=== PATIENT | male | born 1940 | race Caucasian/White ===

== ENCOUNTER 2019-12-16 06:40 | Outpatient (CLI) | payer MEDICARE, SELFPAY ==
[2019-12-16 07:30] LABS: Anion Gap 4 mmol/L (8-16); Blood Urea Nitrogen 16 mg/dL (9-20); Calcium 8.4 mg/dL (8.4-10.2); Carbon Dioxide 31 mmol/L (22-30); Chloride 104 mmol/L (98-107); Estimated Glomerular Filt Rate > 60; Glucose 88 mg/dL (75-110); Potassium 4.3 mmol/L (3.4-5.0); Sodium 139 mmol/L (137-145)
== END 2019-12-16 06:41 | disposition home or self-care (01) ==
DX: I25.5 Ischemic cardiomyopathy (principal)
CPT/HCPCS: 36415; 80048

== ENCOUNTER 2019-12-24 09:38 | Emergency (ER) | payer MEDICARE, SELFPAY ==
--- NOTE | ~2019-12-24 | CT_ITS ---
EXAMINATION: CT brain wo con INDICATION: Lower limb weakness COMPARISON: None TECHNIQUE: Standard unenhanced head CT. The dose-length product (DLP) was 605.33 mGy-cm. The mA was a djusted according to patient size. Iterative reconstruction technique was employed. FINDINGS: There is no acute intraparenchymal hemorrhage. No evidence of mass lesion. No evidence of a cute infarction. There is mild periventricular and subcortical hypodensity probably related to small vessel ischemic disease. There is mild prominence of the sulci and ventricles related to cerebral atr ophy. Intracranial calcified cerebral atherosclerosis is noted. There are no extra-axial collections. There is no mass effect or midline shift. There appear to be changes of ocular lens surgery in the l eft lobe. There also appear to be chronic changes of sinusitis and surgery in the left maxillary sin us. IMPRESSION: 1. No acute intracranial abnormality. 2. Age related findings. Reviewed, dictated and finalized at location A.
--- NOTE | ~2019-12-24 | XR_ITS ---
EXAMINATION: XR chest 1V portable INDICATION: Weakness TECHNIQUE: Portable AP chest at 1018 hours COMPARISON: CT, 11/30/2018 FINDINGS: The lung volumes are low. Cardiomegaly is noted. Chronic airspace opacities are present wit h a mid and lower lung zone predominance. No definite superimposed airspace opacity is seen. No pleur al effusion or pneumothorax is identified. Median sternotomy wires are consistent with prior cardiac surgery. A pacemaker of the left chest wall is noted. IMPRESSION: 1. Chronic airspace opacities, consistent with chronic interstitial lung disease, without definite flores perimposed airspace opacity identified. 2. Cardiomegaly. Reviewed, dictated and finalized at location A. IMPRESSION: 1. Chronic airspace opacities, consistent with chronic interstitial lung diseas e, without definite superimposed airspace opacity identified. 2. Cardiomegaly.
[2019-12-24 09:54] VITALS: BP 128/92; PULSE 88; RESP 18; TEMP 36.6; O2SAT 100
--- NOTE | 2019-12-24 10:00 | PC.NURSE ---
Pt attempting to provide urine sample at this time.
--- NOTE | 2019-12-24 10:02 | ECG_ITS ---
Measurements Intervals [place] Rate: 87 P: MA: 0 QRS: -84 QRSD: 213 T: 90 QT: 474 QTc: 572 Interpretive Statements SINUS OR ECTOPIC ATRIAL RHYTHM RIGHT BUNDLE BRANCH BLOCK LEFT ANTERIOR FASCICULAR BLOCK BASELINE ARTIFACT- I, III, AVR, AVL, AVF, V1 ABNORMAL ECG Electronically Signed On 12-24-2019 13:48:39 CDT by Albert Harvey D.O.
--- NOTE | 2019-12-24 10:10 | PC.NURSE ---
Pt unable to provide urine sample at this time
[2019-12-24 10:18] LABS: Basophils Percent Auto 0.3 % (0.2-1.2); Eosinophils Absolute Auto 0.1 K/mm3 (0-0.3); Hematocrit 26.6 % (42.0-52.0); Hemoglobin 8.1 g/dL (14.0-18.0); Immature Granulocyte Absolute 0.03 K/mm3 (0.00-0.031); Immature Granulocyte Percent A 0.5 % (0-0.5); Lymphocytes Absolute Auto 0.65 K/mm3 (0.9-3.2); Lymphocytes Percent Auto 10.5 % (18.3-44.2); Mean Corpuscular HGB Conc 30.5 g/dl (32-36); Mean Corpuscular Hemoglobin 26.6 pg (26-34); Mean Corpuscular Volume 87.2 fl (80-100); Mean Platelet Volume 10.2 fl (7.4-10.4); Monocytes Absolute Auto 0.7 K/mm3 (0.1-0.6); Monocytes Percent Auto 11.6 % (2.6-8.5); Neutrophils Absolute Auto 4.7 K/mm3 (1.3-6.7); Neutrophils Percent Auto 76.1 % (45.5-73.1); Platelet Count Result 108 k/mm3 (150-375); Red Blood Count 3.05 M/mm3 (4.6-6.20); Red Cell Distribution Width 20.9 % (11.5-14.5); White Blood Count 6.2 K/mm3 (4.5-10.0)
--- NOTE | 2019-12-24 10:28 | ED.GENADULT ---
HPI - General Adult General Chief complaint: Weakness Stated complaint: weakness in lower legs Time Seen by Provider: 12/24/19 09:48 Source: patient History of Present Illness HPI narrative: Patient is a 79 y/o male complaining of bilateral leg weakness starting today. He states that he was staying at a friend's place last night. Around 7:30 AM, after he got up, he notice slight bilateral weakness. Later, another friend went to [employer] to go to breakfast. He still had leg weakness, but was able to walk and get himself into the car. However, after they arrived at the place for breakfast, he could not walk. He was brought in by his son's girlfriend. He also has some sensation of light-headedness. He denies any chest pain, SOB or passing out. He is able to move both arms without difficulty. He was Amiodarone for VT and it was recently changed to Mexiletine. He is also on Eliquis for A fib. Related Data Allergies Allergy/AdvReac Type Severity Reaction Status Date / Time lisinopril AdvReac Unknown Cough Verified 11/26/18 11:17 losartan AdvReac Unknown Cough Verified 11/26/18 11:17 Dvcettf-Wsr-Rag Reductase AdvReac Unknown Other Verified 11/26/18 08:45 Inhibitor Review of Systems Constitutional: Constitutional: Denies chills, Denies fever(s), Denies headache(s) and Reports weakness Eyes: Eyes: Denies blurry vision ENT: Denies headache(s) and Denies neck pain Cardiovascular: Cardiovascular: Denies chest pain and Denies dyspnea Respiratory: Respiratory: Denies cough and Denies dyspnea Gastrointestinal: Gastrointestinal: Denies abdominal pain, Denies diarrhea, Denies nausea and Denies vomiting Genitourinary: Genitourinary: Denies hematuria and Denies dysuria Musculoskeletal: Musculoskeletal: Denies back pain and Denies neck pain Neurologic: Reports dizziness, Denies headache(s) and Reports weakness PMFSH Social History Social History Gender identity (if verbalized by the patient): Male Exam Const: General: no acute distress and well developed Orientation/consciousness: oriented to person, oriented to place, oriented to time and patient oriented x3 HENMT: Head: normocephalic Ears: external ears normal General nose exam: Normal external nose present Eyes: General: appearance normal, both eyes and all related structures Conjunctivae: conjunctivae normal Neck: Neck: normal visual inspection and full ROM Chest: Chest palpation & inspection: normal inspection of the chest and no tenderness Resp: Effort & Inspection: normal respiratory effort Auscultation: clear to auscultation bilaterally Cardio: Rate: regular rate Rhythm: regular rhythm GI: GI Palp: No abdominal tenderness and Yes Soft to palpation Skin: General skin exam: normal color and turgor normal Neuro: General: oriented to person, oriented to place, oriented to time and patient oriented x3 Cognition (Neuro): normal cognition Extrem: General: normal to inspection, full ROM and no pedal edema Psych: Appearance: grossly normal Mental Status: mental status grossly normal Affect: normal affect Course Reevaluation(s) Reevaluation #1: Advised patient to be admitted for observation. Informed patient that his symptoms may be due TIA or other potentially serious causes. Patient insists that he does not want to be admitted. He will leave A. He is awake, alert and competent to make medical decision for himself. Date: 12/24/19 Time: 13:25 Vital Signs Vital signs: Vital Signs Temperature 36.6 C 12/24/19 09:54 Pulse Rate 88 12/24/19 09:54 Respiratory Rate 18 12/24/19 09:54 Blood Pressure 128/92 H 12/24/19 09:54 Pulse Oximetry 100 12/24/19 09:54 Temperature 36.6 C 12/24/19 09:54 Pulse Rate 90 12/24/19 13:43 Respiratory Rate 18 12/24/19 13:43 Blood Pressure 118/83 12/24/19 13:43 Pulse Oximetry 100 12/24/19 13:43 Medical Decision Making [facility] Narrative Medical decisio
[2019-12-24 10:30] LABS: Alanine Aminotransferase 51 U/L (4-50); Albumin Level 3.1 g/dL (3.5-5.1); Alkaline Phosphatase 112 U/L (38-126); Anion Gap 3 mmol/L (8-16); Aspartate Amino Transferase 67 U/L (17-59); Bilirubin,Total 0.9 mg/dL (0.2-1.3); Blood Urea Nitrogen 18 mg/dL (9-20); Calcium 8.5 mg/dL (8.4-10.2); Carbon Dioxide 31 mmol/L (22-30); Chloride 105 mmol/L (98-107); Estimated CRCL calculation 65 ml/min; Estimated Glomerular Filt Rate > 60; Glucose 120 mg/dL (75-110); Potassium 4.1 mmol/L (3.4-5.0); Sodium 139 mmol/L (137-145)
[2019-12-24 11:22] VITALS: PULSE 85
[2019-12-24 11:50] LABS: Add Urine Microscopic? YES; Appearance Urine Cloudy (Clear); Bacteria Urine Trace /hpf; Bilirubin Urine Negative (Negative); Color Urine Amber (Yellow); Glucose Urine UA Negative (Negative); Hyaline Casts Urine 15-19 /lpf; Ketones Urine Trace mg/dL (Negative); Leukocyte Esterase Ur Negative LEU/UL (Negative); Mucus Urine Heavy /lpf; Nitrate Urine Negative (Negative); Protein Urine 2+ mg/dL (Negative); RBC Urine 0-2 /hpf (0-2); Specific Grav Ur 1.029 (1.001-1.035); Squamous Epithelial Cell Urine Occasional /hpf (Few)
[2019-12-24 11:51] LABS: Blood Urine Negative (Negative)
[2019-12-24 12:02] VITALS: BP 121/83; PULSE 89; RESP 18; O2SAT 100
[2019-12-24 13:17] LABS: INR 1.7; Prothrombin Time 19.8 Seconds (11.1-14.7)
[2019-12-24 13:18] LABS: Partial Thromboplastin Time 31.5 SECONDS (22.3-36.8)
[2019-12-24 13:43] VITALS: BP 118/83; PULSE 90; RESP 18; O2SAT 100
== END 2019-12-24 14:07 | disposition left against medical advice (07) ==
PROVIDERS: Emergency Provider Emergency Medicine
DX: R53.1 Weakness (principal); N39.0 Urinary tract infection, site not specified; I48.91 Unspecified atrial fibrillation; Z79.01 Long term (current) use of anticoagulants
CPT/HCPCS: 36415; 70450; 71045; 80053; 81001; 85025; 85610; 85730; 87086; 87088; 93005; 99284